=== PATIENT | male | born 1970 | race Two or more races ===

== ENCOUNTER 2023-08-04 17:50 | Inpatient (IN) | payer OTHER ==
[~2023-08-04] VITALS: Ht 172.7 cm; Wt 53.5 kg
[2023-08-04 23:24] LABS: Basophils # (auto) 0.1 10 ^3/uL (0-0.2); Basophils % (auto) 0.6 % (0.0-2.0); Eosinophils # (auto) 0.2 10 ^3/uL (0-0.8); Eosinophils % (auto) 1.9 % (0.0-7.0); Hematocrit 33.3 % (41.0-53.0); Hemoglobin 10.9 g/dL (13.5-17.5); Lymphocytes # (auto) 1.9 10 ^3/uL (0.4-5.4); Lymphocytes % (auto) 21.4 % (10.0-50.0); Mean Corpuscular Hemoglobin 29.2 pg (28.0-32.0); Mean Corpuscular Hgb Conc. 32.7 g/dL (32.0-36.0); Mean Corpuscular Volume 89.3 fL (80.0-100.0); Monocytes # (auto) 0.6 10 ^3/uL (0-1.3); Neutrophils % (auto) 69.1 % (37.0-80.0); Red Blood Cells 3.73 10^6/uL (4.5-5.90); Red Cell Distribution Width 14.6 % (11.8-14.3); White Blood Cell 8.7 10^3/uL (4.4-10.8)
[2023-08-04 23:32] LABS: Alanine Aminotransferase 13 U/L (7-40); Alkaline Phosphatase 109 U/L (46-116); Anion Gap 3 (5-15); Aspartate Aminotransferase 10 U/L (13-40); BUN/Creatinine Ratio 15.7 (10.0-20.0); Blood Urea Nitrogen 14 mg/dL (9-23); Calcium 9.2 mg/dL (8.5-10.1); Carbon Dioxide 31 mmol/L (20-30); Chloride 102 mmol/L (98-107); Glucose 327 mg/dL (74-106); Potassium 4.6 mmol/L (3.5-5.1); Sodium 136 mmol/L (136-145)
[2023-08-04 23:33] LABS: Bilirubin, Total 0.2 mg/dL (0.2-1.0); Total Protein 7.9 g/dL (5.7-8.2)
[2023-08-05 00:29] LABS: Lipase 74 U/L (12-53)
[2023-08-05 00:43] LABS: Urine Bacteria NONE SEEN /hpf (None Seen); Urine Blood Negative /uL (Negative); Urine Clarity Clear (Clear); Urine Color Yellow (Yellow); Urine Mucus FEW (None Seen); Urine Protein, UAD Negative (Negative); Urine Specific Gravity 1.024 (1.001-1.035); Urine Urobilinogen Normal (Negative); Urine WBC 2 /hpf (0 - 3); Urine pH 5.5 (5.0-8.0)
[2023-08-05] MEDS ORDERED: InsuLIN REG 1unit/0.01ml Soln (100units/ml) IV ONE (00:45)
[2023-08-05] MEDS ORDERED: ONDANSETRON HCL 4 MG/2 ML VIAL IV ONE (00:45)
[2023-08-05] MEDS ORDERED: HYDROmorphone HCL 2 MG/ML VL/or syr IV ONE (00:45)
[2023-08-05] MEDS ORDERED: SODIUM CHLORIDE 0.9% 1,000 ML IVB ONE (00:45)
[2023-08-05 01:24] LABS: Amphetamine Screen, Urine Neg (NEGATIVE); Barbiturate Scree,Urine Neg (NEGATIVE); Benzodiazephine Screen, Urine Neg (NEGATIVE); Cocaine Screen, Urine Neg (NEGATIVE); Opiate Scree,Urine Neg (NEGATIVE)
[2023-08-05 01:25] LABS: Cannabinoid Screen, Urine Neg (NEGATIVE); Phencyclidine Screen, Urine Neg (NEGATIVE)
[2023-08-05] MEDS ORDERED: SODIUM CHLORIDE 0.9% 1,000 ML IV ONE (03:45)
[2023-08-05] MEDS ORDERED: AZITHROMYCIN 500MG/ 250ML 250 ML IV ONE (03:45)
[2023-08-05] MEDS ORDERED: cefTRIAXone 1GM/50ML D5W 50 ML IV ONE (03:45)
[2023-08-05] MEDS ORDERED: DEXTROSE (50%) 50ML SYRG IV PRN (06:45)
[2023-08-05] MEDS ORDERED: ONDANSETRON HCL 4 MG/2 ML VIAL IV PRN (06:45)
[2023-08-05] MEDS: SODIUM CHLORIDE 0.9% 1,000 ML IV SCH ×2 (06:45→09:36)
[2023-08-05] MEDS ORDERED: MORPHINE SULFATE INJ 2 MG/ml SYRG IV PRN (06:45)
[2023-08-05] MEDS: cefTRIAXone 1GM/50ML D5W 50 ML IV SCH (09:36)
[2023-08-05] MEDS: AZITHROMYCIN 500MG/ 250ML 250 ML IV SCH (10:28)
[2023-08-05 11:30] VITALS: PULSE 80; RESP 12; O2SAT 98
[2023-08-05] MEDS: ACCU-CHEK COMFORT CURVE STRIP VI SCH ×2 (12:28→19:25)
[2023-08-05] MEDS: InsuLIN REG 1unit/0.01ml Soln (100units/ml) SC SCH ×2 (12:29→19:33)
[2023-08-05] MEDS ORDERED: GASTROGRAFIN 120 ML SOL ONE (14:14)
[2023-08-05 22:38] VITALS: BP 119/88; PULSE 82; RESP 16; TEMP 98.2; O2SAT 93
[2023-08-05] MEDS ORDERED: METF-372 PO (22:42)
[2023-08-05] MEDS ORDERED: GLIP-197 PO (22:42)
[2023-08-05] MEDS: INSULIN LANTUS (GLARGINE) 1 /0.01ml (100units/ml) SC SCH (23:08)
[2023-08-06] MEDS: ACCU-CHEK COMFORT CURVE STRIP VI SCH ×5 (00:45→23:30)
[2023-08-06] MEDS: InsuLIN REG 1unit/0.01ml Soln (100units/ml) SC SCH ×5 (00:48→23:30)
[2023-08-06 05:28] VITALS: BP 109/64; PULSE 60; RESP 16; TEMP 97.9; O2SAT 95
[2023-08-06 07:02] LABS: Eosinophils # (auto) 0.1 10 ^3/uL (0-0.8); Hematocrit 34.7 % (41.0-53.0); Lymphocytes # (auto) 1.6 10 ^3/uL (0.4-5.4); Monocytes # (auto) 0.5 10 ^3/uL (0-1.3); Monocytes % (auto) 7.2 % (0.0-12.0); White Blood Cell 6.6 10^3/uL (4.4-10.8)
[2023-08-06 07:04] LABS: Basophils # (auto) 0.1 10 ^3/uL (0-0.2); Basophils % (auto) 0.8 % (0.0-2.0); Eosinophils % (auto) 1.6 % (0.0-7.0); Hemoglobin 11.5 g/dL (13.5-17.5); Mean Corpuscular Hemoglobin 29.6 pg (28.0-32.0); Mean Corpuscular Hgb Conc. 33.3 g/dL (32.0-36.0); Mean Corpuscular Volume 88.8 fL (80.0-100.0); Neutrophils # (auto) 4.4 10 ^3/uL (1.6-8.6); Neutrophils % (auto) 66.4 % (37.0-80.0); Nucleated Red Blood Cells % 0.1 %
[2023-08-06 07:24] LABS: Alanine Aminotransferase 11 U/L (7-40); Albumin 4.2 g/dL (3.2-4.8); Alkaline Phosphatase 100 U/L (46-116); Anion Gap 6 (5-15); Aspartate Aminotransferase 12 U/L (13-40); BUN/Creatinine Ratio 11.7 (10.0-20.0); Bilirubin, Total 0.2 mg/dL (0.2-1.0); Blood Urea Nitrogen 7 mg/dL (9-23); Calcium 9.2 mg/dL (8.7-10.4); Carbon Dioxide 29 mmol/L (20-30); Chloride 102 mmol/L (98-107); Glucose 85 mg/dL (74-106); Potassium 3.7 mmol/L (3.5-5.1); Sodium 137 mmol/L (136-145); Total Protein 8.2 g/dL (5.7-8.2)
[2023-08-06] MEDS: cefTRIAXone 1GM/50ML D5W 50 ML IV SCH (08:40)
[2023-08-06 09:19] VITALS: BP 107/73; PULSE 96; RESP 20; TEMP 98.3; O2SAT 99
[2023-08-06] MEDS: SODIUM CHLORIDE 0.9% 1,000 ML IV SCH ×2 (09:54→22:45)
[2023-08-06] MEDS: AZITHROMYCIN 500MG/ 250ML 250 ML IV SCH (09:55)
[2023-08-06 12:38] VITALS: BP 130/85; PULSE 72; RESP 20; TEMP 97.5; O2SAT 100
[2023-08-06 17:02] VITALS: BP 119/83; PULSE 77; RESP 20; TEMP 98.9; O2SAT 100
[2023-08-06 22:00] VITALS: BP 100/72; PULSE 89; RESP 20; TEMP 98.1; O2SAT 91
[2023-08-06] MEDS: INSULIN LANTUS (GLARGINE) 1 /0.01ml (100units/ml) SC SCH (22:00)
[2023-08-07 05:00] VITALS: BP 120/80; PULSE 86; RESP 22; TEMP 97.7; O2SAT 100
[2023-08-07 05:31] LABS: Basophils # (auto) 0 10 ^3/uL (0-0.2); Eosinophils # (auto) 0.1 10 ^3/uL (0-0.8); Eosinophils % (auto) 2.1 % (0.0-7.0); Hemoglobin 11.4 g/dL (13.5-17.5); Monocytes # (auto) 0.3 10 ^3/uL (0-1.3); Neutrophils # (auto) 2.8 10 ^3/uL (1.6-8.6); Nucleated Red Blood Cells % 0.1 %
[2023-08-07 05:35] LABS: Hematocrit 33.7 % (41.0-53.0); Lymphocytes # (auto) 1.3 10 ^3/uL (0.4-5.4); Lymphocytes % (auto) 29.3 % (10.0-50.0); Mean Corpuscular Hemoglobin 29.5 pg (28.0-32.0); Mean Corpuscular Hgb Conc. 33.7 g/dL (32.0-36.0); Mean Corpuscular Volume 87.5 fL (80.0-100.0); Monocytes % (auto) 7.1 % (0.0-12.0); Neutrophils % (auto) 60.5 % (37.0-80.0); Red Blood Cells 3.86 10^6/uL (4.5-5.90); Red Cell Distribution Width 14.7 % (11.8-14.3); White Blood Cell 4.6 10^3/uL (4.4-10.8)
[2023-08-07 05:49] LABS: Chloride 102 mmol/L (98-107); Potassium 3.7 mmol/L (3.5-5.1); Sodium 135 mmol/L (136-145)
[2023-08-07 05:50] LABS: Anion Gap 8 (5-15); Calcium 9.1 mg/dL (8.5-10.1); Carbon Dioxide 25 mmol/L (20-30)
[2023-08-07 05:55] LABS: Glucose 103 mg/dL (74-106)
[2023-08-07] MEDS: InsuLIN REG 1unit/0.01ml Soln (100units/ml) SC SCH ×4 (06:00→22:55)
[2023-08-07 06:05] LABS: BUN/Creatinine Ratio 9.6 (10.0-20.0); Blood Urea Nitrogen < 5 mg/dL (9-23)
[2023-08-07] MEDS: ACCU-CHEK COMFORT CURVE STRIP VI SCH ×4 (06:13→22:55)
[2023-08-07 08:38] VITALS: BP 118/81; PULSE 80; RESP 20; TEMP 97.7; O2SAT 96
[2023-08-07] MEDS: cefTRIAXone 1GM/50ML D5W 50 ML IV SCH (08:51)
[2023-08-07] MEDS: AZITHROMYCIN 500MG/ 250ML 250 ML IV SCH (08:52)
[2023-08-07 12:29] VITALS: BP 108/66; PULSE 74; RESP 20; TEMP 98.2; O2SAT 93
[2023-08-07] MEDS: SODIUM CHLORIDE 0.9% 1,000 ML IV SCH (12:34)
[2023-08-07] MEDS ORDERED: VANCOMYCIN PER PHARMACY 0 MG IV SCH (14:30)
[2023-08-07] MEDS ORDERED: PIPERACILLIN-TAZOB 3.375GM 100 ML IV ONE (14:30)
[2023-08-07] MEDS ORDERED: VANCOMYCIN 1GM/250ML 250 ML IV ONE (15:30)
[2023-08-07 17:21] VITALS: BP 109/70; PULSE 96; RESP 16; TEMP 98; O2SAT 97
[2023-08-07 21:50] VITALS: BP 109/71; PULSE 96; RESP 18; TEMP 98.9; O2SAT 97
[2023-08-07] MEDS: PIPERACILLIN-TAZOB 3.375GM 100 ML IV SCH (22:10)
[2023-08-07] MEDS: INSULIN LANTUS (GLARGINE) 1 /0.01ml (100units/ml) SC SCH (22:55)
[2023-08-08] MEDS: SODIUM CHLORIDE 0.9% 1,000 ML IV SCH ×2 (01:25→14:45)
[2023-08-08] MEDS: VANCOMYCIN 750mg/250ml 250 ML IV SCH ×2 (01:38→12:21)
[2023-08-08 05:00] VITALS: BP 101/59; PULSE 98; RESP 18; TEMP 98.6; O2SAT 96
[2023-08-08] MEDS: ACCU-CHEK COMFORT CURVE STRIP VI SCH ×2 (06:42→11:36)
[2023-08-08] MEDS: InsuLIN REG 1unit/0.01ml Soln (100units/ml) SC SCH ×2 (06:44→11:36)
[2023-08-08 08:00] VITALS: PULSE 96; RESP 18; O2SAT 97
[2023-08-08 08:00] LABS: Eosinophils # (auto) 0.1 10 ^3/uL (0-0.8); Lymphocytes # (auto) 1.5 10 ^3/uL (0.4-5.4); Monocytes # (auto) 0.4 10 ^3/uL (0-1.3)
[2023-08-08 08:01] LABS: Basophils # (auto) 0 10 ^3/uL (0-0.2); Basophils % (auto) 0.7 % (0.0-2.0); Eosinophils % (auto) 1.8 % (0.0-7.0); Hemoglobin 11.6 g/dL (13.5-17.5); Lymphocytes % (auto) 26.8 % (10.0-50.0); Mean Corpuscular Hemoglobin 29.2 pg (28.0-32.0); Mean Corpuscular Hgb Conc. 33.1 g/dL (32.0-36.0); Monocytes % (auto) 6.5 % (0.0-12.0); Neutrophils # (auto) 3.6 10 ^3/uL (1.6-8.6); Neutrophils % (auto) 64.2 % (37.0-80.0); Red Blood Cells 3.97 10^6/uL (4.5-5.90); Red Cell Distribution Width 14.8 % (11.8-14.3); White Blood Cell 5.6 10^3/uL (4.4-10.8)
[2023-08-08 08:13] LABS: Chloride 103 mmol/L (98-107); Sodium 135 mmol/L (136-145)
[2023-08-08 08:14] LABS: Anion Gap 7 (5-15); Carbon Dioxide 25 mmol/L (20-30)
[2023-08-08 08:15] LABS: Calcium 8.9 mg/dL (8.5-10.1)
[2023-08-08 08:19] LABS: BUN/Creatinine Ratio 14.5 (10.0-20.0); Blood Urea Nitrogen 10 mg/dL (9-23); Glucose 189 mg/dL (74-106)
[2023-08-08 09:00] VITALS: BP 102/61; PULSE 96; RESP 18; TEMP 98.1; O2SAT 97
[2023-08-08] MEDS: PIPERACILLIN-TAZOB 3.375GM 100 ML IV SCH (09:37)
[2023-08-08] MEDS ORDERED: DOXY-286 PO (12:02)
[2023-08-08 13:10] VITALS: BP 102/65; PULSE 95; RESP 17; TEMP 98.6; O2SAT 98
== END 2023-08-08 18:22 | disposition home or self-care (01) | DRG 137 ==
LOC: ER 17:50 → EDBD 17:50 → OVERFLOW 08-05 06:38 → WEST WING 08-05 22:15
PROVIDERS: ADMIT Internal Medicine; ATTEND Internal Medicine
DX: J15.69 Pneumonia due to other Gram-negative bacteria (principal); N17.0 Acute kidney failure with tubular necrosis; K40.00 Bilateral inguinal hernia, with obstruction, without gangrene, not specified as recurrent; I10 Essential (primary) hypertension; J15.9 Unspecified bacterial pneumonia; E11.65 Type 2 diabetes mellitus with hyperglycemia
CPT/HCPCS: 36415; 71045; 74177; 74250; 80048; 80053; 80307; 80320; 81001; 82962; 83036; 83605; 83690; 84484; 85025; 87040; 87077; 87186; G0378; J0696; J1815; J2543

== ENCOUNTER 2023-08-19 10:37 | Emergency (ER) | payer MEDICAID, OTHER ==
[~2023-08-19] VITALS: Ht 172.7 cm; Wt 50.0 kg
[~2023-08-19 10:37] MED LIST: DOXY-286 PO; GLIP-197 PO; METF-372 PO
[2023-08-19] MEDS ORDERED: MORPHINE SULFATE 4 MG/ML SYR/VIAL IV ONE (11:15)
[2023-08-19] MEDS ORDERED: ONDANSETRON HCL 4 MG/2 ML VIAL IV ONE (11:15)
[2023-08-19] MEDS ORDERED: SODIUM CHLORIDE 0.9% 500 ML IVB ONE (11:15)
[2023-08-19 11:31] LABS: Basophils # (auto) 0.1 10 ^3/uL (0-0.2); Eosinophils # (auto) 0.1 10 ^3/uL (0-0.8); Lymphocytes # (auto) 1.7 10 ^3/uL (0.4-5.4)
[2023-08-19 11:33] LABS: Basophils % (auto) 0.9 % (0.0-2.0); Eosinophils % (auto) 1.3 % (0.0-7.0); Hematocrit 38.4 % (41.0-53.0); Hemoglobin 13.1 g/dL (13.5-17.5); Mean Corpuscular Hemoglobin 29.8 pg (28.0-32.0); Mean Corpuscular Volume 87.5 fL (80.0-100.0); Monocytes # (auto) 0.8 10 ^3/uL (0-1.3); Monocytes % (auto) 8.6 % (0.0-12.0); Neutrophils # (auto) 7.1 10 ^3/uL (1.6-8.6); Neutrophils % (auto) 72.2 % (37.0-80.0); Red Blood Cells 4.39 10^6/uL (4.5-5.90); White Blood Cell 9.8 10^3/uL (4.4-10.8)
[2023-08-19 11:40] LABS: Urine Bacteria NONE SEEN /hpf (None Seen); Urine Blood Negative /uL (Negative); Urine Clarity Clear (Clear); Urine Color Colorless (Yellow); Urine Protein, UAD TRACE (Negative); Urine Specific Gravity 1.037 (1.001-1.035); Urine Urobilinogen Normal (Negative); Urine WBC <1 /hpf (0 - 3); Urine pH 5.5 (5.0-8.0)
[2023-08-19 11:50] LABS: Alanine Aminotransferase 27 U/L (7-40); Albumin 4.3 g/dL (3.2-4.8); Alkaline Phosphatase 155 U/L (46-116); Anion Gap 5 (5-15); Aspartate Aminotransferase 33 U/L (13-40); BUN/Creatinine Ratio 9.7 (10.0-20.0); Bilirubin, Total 0.6 mg/dL (0.2-1.0); Blood Urea Nitrogen 7 mg/dL (9-23); Carbon Dioxide 24 mmol/L (20-30); Chloride 99 mmol/L (98-107); Glucose 389 mg/dL (74-106); Lipase 41 U/L (12-53); Sodium 128 mmol/L (136-145); Total Protein 8.5 g/dL (5.7-8.2)
[2023-08-19 12:05] LABS: INR 0.94 (0.9-1.15); Partial Thromboplastin Time 28.6 SEC (24.5-34.5); Prothrombin Time 9.9 sec (9.3-11.8)
[2023-08-19] MEDS ORDERED: IOHEXOL 300 MG/ML 100ML BOTTLE IJ ONE (12:08)
[2023-08-19 18:29] VITALS: BP 104/65; PULSE 112; RESP 20; TEMP 98.3; O2SAT 97
== END 2023-08-19 18:48 | disposition home or self-care (01) ==
LOC: ER 10:37
DX: K40.90 Unilateral inguinal hernia, without obstruction or gangrene, not specified as recurrent (principal); E11.9 Type 2 diabetes mellitus without complications; E78.5 Hyperlipidemia, unspecified; I10 Essential (primary) hypertension
CPT/HCPCS: 36415; 74177; 80053; 81001; 83690; 83735; 85025; 85610; 85730; 96361; 96374; 96375; 99285; J2270; J2405; J7040; Q9967

== ENCOUNTER 2023-08-25 14:52 | Emergency (ER) | payer MEDICAID ==
[~2023-08-25] VITALS: Ht 177.8 cm; Wt 55.3 kg
[2023-08-25 16:01] LABS: Basophils # (auto) 0.1 10 ^3/uL (0-0.2); Eosinophils # (auto) 0.1 10 ^3/uL (0-0.8); Hemoglobin 13.3 g/dL (13.5-17.5); Monocytes # (auto) 0.6 10 ^3/uL (0-1.3)
[2023-08-25 16:03] LABS: Basophils % (auto) 1.1 % (0.0-2.0); Eosinophils % (auto) 1.5 % (0.0-7.0); Hematocrit 39.7 % (41.0-53.0); Lymphocytes # (auto) 2.1 10 ^3/uL (0.4-5.4); Lymphocytes % (auto) 29.7 % (10.0-50.0); Mean Corpuscular Hemoglobin 29.3 pg (28.0-32.0); Mean Corpuscular Hgb Conc. 33.4 g/dL (32.0-36.0); Mean Corpuscular Volume 87.7 fL (80.0-100.0); Neutrophils # (auto) 4.1 10 ^3/uL (1.6-8.6); Neutrophils % (auto) 58.7 % (37.0-80.0); Red Blood Cells 4.52 10^6/uL (4.5-5.90); White Blood Cell 7.1 10^3/uL (4.4-10.8)
[2023-08-25 16:08] LABS: Urine Bacteria NONE SEEN /hpf (None Seen); Urine Blood Negative /uL (Negative); Urine Clarity Clear (Clear); Urine Color Colorless (Yellow); Urine Protein, UAD Negative (Negative); Urine Specific Gravity 1.033 (1.001-1.035); Urine Urobilinogen Normal (Negative); Urine WBC <1 /hpf (0 - 3)
[2023-08-25 16:22] LABS: Alanine Aminotransferase 19 U/L (7-40); Albumin 4.5 g/dL (3.2-4.8); Alkaline Phosphatase 219 U/L (46-116); Anion Gap 7 (5-15); Aspartate Aminotransferase 9 U/L (13-40); BUN/Creatinine Ratio 23.2 (10.0-20.0); Bilirubin, Total 0.3 mg/dL (0.2-1.0); Blood Urea Nitrogen 19 mg/dL (9-23); Calcium 9.7 mg/dL (8.5-10.1); Carbon Dioxide 27 mmol/L (20-30); Chloride 97 mmol/L (98-107); Potassium 4.5 mmol/L (3.5-5.1); Sodium 131 mmol/L (136-145); Total Protein 8.4 g/dL (5.7-8.2)
[2023-08-25 16:31] LABS: Glucose 483 mg/dL (74-106)
[2023-08-25] MEDS ORDERED: SODIUM CHLORIDE 0.9% 1,000 ML IV ONE (16:45)
[2023-08-25] MEDS ORDERED: InsuLIN REG 1unit/0.01ml Soln (100units/ml) IV ONE (16:45)
[2023-08-25] MEDS ORDERED: METF-489 PO (19:58)
[2023-08-25] MEDS ORDERED: GLIP-197 PO (19:58)
[2023-08-25 20:10] VITALS: BP 118/81; PULSE 112; RESP 22; O2SAT 100
== END 2023-08-25 21:23 | disposition home or self-care (01) ==
LOC: ER 14:52
DX: K40.20 Bilateral inguinal hernia, without obstruction or gangrene, not specified as recurrent (principal); E11.65 Type 2 diabetes mellitus with hyperglycemia; E78.5 Hyperlipidemia, unspecified; I10 Essential (primary) hypertension
CPT/HCPCS: 36415; 76705; 80053; 81001; 82962; 85025; 96361; 96374; 99285; J1815; J7030

== ENCOUNTER 2023-08-29 13:07 | Inpatient (IN) | payer MEDICAID ==
[~2023-08-29] VITALS: Ht 172.7 cm; Wt 56.1 kg
[~2023-08-29 13:07] MED LIST changes: +METF-489 PO
[2023-08-29] MEDS ORDERED: SODIUM CHLORIDE 0.9% 1,000 ML IVB ONE (18:30)
[2023-08-29] MEDS ORDERED: MORPHINE SULFATE 4 MG/ML SYR/VIAL IV ONE (18:30)
[2023-08-29] MEDS ORDERED: ONDANSETRON HCL 4 MG/2 ML VIAL IV ONE (18:30)
[2023-08-29 18:38] VITALS: PULSE 92; RESP 20; O2SAT 96
[2023-08-29 18:53] LABS: Basophils # (auto) 0.1 10 ^3/uL (0-0.2); Basophils % (auto) 0.8 % (0.0-2.0); Eosinophils # (auto) 0.1 10 ^3/uL (0-0.8); Eosinophils % (auto) 1.7 % (0.0-7.0); Hematocrit 37.8 % (41.0-53.0); Hemoglobin 12.5 g/dL (13.5-17.5); Lymphocytes # (auto) 1.8 10 ^3/uL (0.4-5.4); Lymphocytes % (auto) 25.6 % (10.0-50.0); Mean Corpuscular Hemoglobin 28.8 pg (28.0-32.0); Mean Corpuscular Hgb Conc. 32.9 g/dL (32.0-36.0); Mean Corpuscular Volume 87.4 fL (80.0-100.0); Monocytes # (auto) 0.5 10 ^3/uL (0-1.3); Monocytes % (auto) 7.2 % (0.0-12.0); Neutrophils # (auto) 4.6 10 ^3/uL (1.6-8.6); Neutrophils % (auto) 64.7 % (37.0-80.0); Nucleated Red Blood Cells % 0.1 %; Red Blood Cells 4.33 10^6/uL (4.5-5.90); Red Cell Distribution Width 14.6 % (11.8-14.3)
[2023-08-29] MEDS ORDERED: ONDANSETRON HCL 4 MG/2 ML VIAL ONE (19:11)
[2023-08-29 19:15] LABS: Alanine Aminotransferase 17 U/L (7-40); Alkaline Phosphatase 138 U/L (46-116); Anion Gap 2 (5-15); Aspartate Aminotransferase 10 U/L (13-40); BUN/Creatinine Ratio 31.8 (10.0-20.0); Blood Urea Nitrogen 21 mg/dL (9-23); Carbon Dioxide 29 mmol/L (20-30); Chloride 101 mmol/L (98-107); Lipase 76 U/L (12-53); Potassium 4.3 mmol/L (3.5-5.1); Sodium 132 mmol/L (136-145)
[2023-08-29 19:16] LABS: Bilirubin, Total 0.3 mg/dL (0.2-1.0); Total Protein 7.1 g/dL (5.7-8.2)
[2023-08-29 19:22] LABS: Glucose 277 mg/dL (74-106)
[2023-08-29 19:30] VITALS: PULSE 96; RESP 19; O2SAT 97
[2023-08-29 20:07] LABS: Urine Bacteria NONE SEEN /hpf (None Seen); Urine Blood Negative /uL (Negative); Urine Clarity Clear (Clear); Urine Color Colorless (Yellow); Urine Protein, UAD Negative (Negative); Urine Specific Gravity 1.023 (1.001-1.035); Urine Urobilinogen Normal (Negative); Urine WBC 1 /hpf (0 - 3)
[2023-08-29] MEDS ORDERED: DOCUSATE SOD 100 MG CAP PO PRN (22:00)
[2023-08-29] MEDS ORDERED: metroNIDAZOLE 500MG/100ML 100 ML IV SCH (22:00)
[2023-08-29] MEDS ORDERED: ONDANSETRON HCL 4 MG/2 ML VIAL IV PRN (22:00)
[2023-08-29] MEDS ORDERED: cefTRIAXone 1GM/50ML D5W 50 ML IV SCH (22:00)
[2023-08-29] MEDS ORDERED: HYDROmorphone HCL 2 MG/ML VL/or syr IV PRN (22:00)
[2023-08-29] MEDS ORDERED: ACETAMINOPHEN 325 MG TAB PO PRN (22:00)
[2023-08-29] MEDS: SODIUM CHLOR 0.9% PF (SALINE LOCK) 10ML VIAL/SYR IV SCH (22:00)
[2023-08-29] MEDS ORDERED: HYDROcodone-ACET 5/325MG TAB PO PRN (22:00)
[2023-08-29] MEDS ORDERED: LACTATED RINGER'S 1,000 ML IV ONE (22:15)
[2023-08-29] MEDS ORDERED: DEXTROSE (50%) 50ML SYRG IV PRN (22:15)
[2023-08-30] MEDS ORDERED: cefTRIAXone 1GM/50ML D5W 50 ML IV ONE (00:29)
[2023-08-30] MEDS ORDERED: metroNIDAZOLE 500MG/100ML 100 ML IV ONE (00:29)
[2023-08-30] MEDS: cefTRIAXone 1GM/50ML D5W 50 ML IV SCH (00:30)
[2023-08-30] MEDS: metroNIDAZOLE 500MG/100ML 100 ML IV SCH ×3 (00:30→16:45)
[2023-08-30] MEDS: SODIUM CHLOR 0.9% PF (SALINE LOCK) 10ML VIAL/SYR IV SCH ×3 (06:19→22:10)
[2023-08-30] MEDS: ACCU-CHEK COMFORT CURVE STRIP VI SCH ×4 (06:52→22:10)
[2023-08-30] MEDS: InsuLIN REG 1unit/0.01ml Soln (100units/ml) SC SCH ×4 (06:52→21:59)
[2023-08-30 08:00] VITALS: PULSE 90; RESP 15; O2SAT 100
[2023-08-30] MEDS ORDERED: PIPERACILLIN-TAZOB 3.375GM 100 ML IV ONE (08:30)
[2023-08-30 09:57] LABS: INR 0.99 (0.9-1.15); Partial Thromboplastin Time 28.7 SEC (24.5-34.5); Prothrombin Time 10.4 sec (9.3-11.8)
[2023-08-30] MEDS ORDERED: cefTRIAXone 1GM/50ML D5W 50 ML IV SCH (10:00)
[2023-08-30] MEDS ORDERED: FAMOTIDINE 20 MG TAB PO SCH (10:00)
[2023-08-30] MEDS ORDERED: PANTOPRAZOLE 40 MG/10 ML VIAL INJ IV ONE (15:30)
[2023-08-30 17:16] LABS: Basophils # (auto) 0.1 10 ^3/uL (0-0.2); Eosinophils # (auto) 0.1 10 ^3/uL (0-0.8); Monocytes # (auto) 0.4 10 ^3/uL (0-1.3); Neutrophils # (auto) 4.4 10 ^3/uL (1.6-8.6); White Blood Cell 6.5 10^3/uL (4.4-10.8)
[2023-08-30 17:18] LABS: Basophils % (auto) 0.8 % (0.0-2.0); Eosinophils % (auto) 1.1 % (0.0-7.0); Hematocrit 36.9 % (41.0-53.0); Hemoglobin 12.3 g/dL (13.5-17.5); Lymphocytes # (auto) 1.6 10 ^3/uL (0.4-5.4); Lymphocytes % (auto) 24.3 % (10.0-50.0); Mean Corpuscular Hgb Conc. 33.4 g/dL (32.0-36.0); Mean Corpuscular Volume 87.1 fL (80.0-100.0); Monocytes % (auto) 5.8 % (0.0-12.0); Red Blood Cells 4.24 10^6/uL (4.5-5.90); Red Cell Distribution Width 14.8 % (11.8-14.3)
[2023-08-30 17:37] LABS: Alanine Aminotransferase 20 U/L (7-40); Albumin 4.2 g/dL (3.2-4.8); Alkaline Phosphatase 123 U/L (46-116); Anion Gap 5 (5-15); Aspartate Aminotransferase 15 U/L (13-40); BUN/Creatinine Ratio 11.1 (10.0-20.0); Bilirubin, Total 0.4 mg/dL (0.2-1.0); CRP High Sensitivity 0.17 mg/dL (<1.0); Calcium 9.5 mg/dL (8.5-10.1); Carbon Dioxide 28 mmol/L (20-30); Chloride 102 mmol/L (98-107); Cholesterol 195 mg/dL (< 200); HDL Cholesterol 30 mg/dL (40-59); LDL Cholesterol 131 mg/dL (< 100); Potassium 3.7 mmol/L (3.5-5.1); Sodium 135 mmol/L (136-145); Total Protein 7.8 g/dL (5.7-8.2); Triglycerides 139 mg/dL (< 150)
[2023-08-30 17:46] LABS: Blood Urea Nitrogen 7 mg/dL (9-23); Glucose 160 mg/dL (74-106)
[2023-08-30 17:55] LABS: Lipase 42 U/L (12-53); Magnesium 2.1 mg/dL (1.6-2.6)
[2023-08-30 22:53] VITALS: PULSE 82; RESP 20; O2SAT 98
[2023-08-31] MEDS: cefTRIAXone 1GM/50ML D5W 50 ML IV SCH (00:35)
[2023-08-31] MEDS: metroNIDAZOLE 500MG/100ML 100 ML IV SCH ×3 (00:35→20:54)
[2023-08-31 05:26] LABS: Chloride 101 mmol/L (98-107); Potassium 3.5 mmol/L (3.5-5.1); Sodium 134 mmol/L (136-145)
[2023-08-31 05:27] LABS: Anion Gap 7 (5-15); Carbon Dioxide 26 mmol/L (20-30)
[2023-08-31 05:32] LABS: Basophils # (auto) 0.1 10 ^3/uL (0-0.2); Basophils % (auto) 0.6 % (0.0-2.0); Blood Urea Nitrogen 7 mg/dL (9-23); Eosinophils # (auto) 0.1 10 ^3/uL (0-0.8); Eosinophils % (auto) 0.6 % (0.0-7.0); Glucose 171 mg/dL (74-106); Hematocrit 37.2 % (41.0-53.0); Hemoglobin 12.7 g/dL (13.5-17.5); Lymphocytes # (auto) 1.5 10 ^3/uL (0.4-5.4); Lymphocytes % (auto) 16.2 % (10.0-50.0); Mean Corpuscular Hemoglobin 29.4 pg (28.0-32.0); Mean Corpuscular Hgb Conc. 34.1 g/dL (32.0-36.0); Mean Corpuscular Volume 86.4 fL (80.0-100.0); Monocytes # (auto) 0.4 10 ^3/uL (0-1.3); Monocytes % (auto) 4.7 % (0.0-12.0); Neutrophils # (auto) 7.3 10 ^3/uL (1.6-8.6); Neutrophils % (auto) 77.9 % (37.0-80.0); Nucleated Red Blood Cells % 0.1 %; Red Blood Cells 4.31 10^6/uL (4.5-5.90); Red Cell Distribution Width 14.2 % (11.8-14.3); White Blood Cell 9.4 10^3/uL (4.4-10.8)
[2023-08-31] MEDS: SODIUM CHLOR 0.9% PF (SALINE LOCK) 10ML VIAL/SYR IV SCH ×3 (06:21→22:03)
[2023-08-31] MEDS: ACCU-CHEK COMFORT CURVE STRIP VI SCH ×4 (06:47→22:03)
[2023-08-31] MEDS: InsuLIN REG 1unit/0.01ml Soln (100units/ml) SC SCH ×4 (06:49→22:19)
[2023-08-31 09:16] LABS: Hepatitis B Surface Antigen Negative (Negative)
[2023-08-31 09:37] LABS: Hepatitis A Ab IgM Negative
[2023-08-31 09:38] LABS: Hepatitis B Core IgM Negative; Hepatitis C Antibody Negative (Negative)
[2023-08-31 09:44] VITALS: BP 128/91; PULSE 98; RESP 17; TEMP 97.9; O2SAT 98
[2023-08-31] MEDS ORDERED: PANTOPRAZOLE 40 MG/10 ML VIAL INJ IV SCH (10:00)
[2023-08-31] MEDS: PANTOPRAZOLE 40 MG/10 ML VIAL INJ IV SCH ×2 (11:21→22:03)
[2023-08-31] MEDS ORDERED: POLYETHYLENE GLYCOL 17 GM PWDR PO ONE (12:00)
[2023-08-31] MEDS: METOCLOPRAMIDE HCL 10 MG TAB PO SCH ×2 (14:00→22:03)
[2023-08-31 17:00] VITALS: BP 106/70; PULSE 97; RESP 20; TEMP 98.3; O2SAT 90
[2023-08-31] MEDS: FERROUS SULFATE 325mg EC TAB PO SCH (17:19)
[2023-08-31] MEDS ORDERED: metroNIDAZOLE 500MG/100ML 100 ML IV SCH (19:00)
[2023-08-31 20:00] VITALS: O2SAT 100
[2023-08-31 22:00] VITALS: BP 110/83; PULSE 98; RESP 18; TEMP 97.8; O2SAT 100
[2023-08-31] MEDS ORDERED: INSULIN LANTUS (GLARGINE) 1 /0.01ml (100units/ml) SC SCH (22:00)
[2023-08-31] MEDS ORDERED: ATORVASTATIN 20 MG TAB PO SCH (22:00)
[2023-09-01] MEDS: cefTRIAXone 1GM/50ML D5W 50 ML IV SCH (00:20)
[2023-09-01] MEDS: SODIUM CHLOR 0.9% PF (SALINE LOCK) 10ML VIAL/SYR IV SCH (04:51)
[2023-09-01] MEDS: metroNIDAZOLE 500MG/100ML 100 ML IV SCH ×2 (04:51→13:14)
[2023-09-01 05:00] VITALS: BP 121/84; PULSE 85; RESP 18; TEMP 97.7; O2SAT 99
[2023-09-01] MEDS: METOCLOPRAMIDE HCL 10 MG TAB PO SCH (06:22)
[2023-09-01] MEDS: ACCU-CHEK COMFORT CURVE STRIP VI SCH ×2 (06:23→13:14)
[2023-09-01] MEDS: InsuLIN REG 1unit/0.01ml Soln (100units/ml) SC SCH ×2 (06:34→13:16)
[2023-09-01 07:29] LABS: Basophils # (auto) 0 10 ^3/uL (0-0.2); Eosinophils # (auto) 0.1 10 ^3/uL (0-0.8); Monocytes # (auto) 0.4 10 ^3/uL (0-1.3); Neutrophils # (auto) 2.5 10 ^3/uL (1.6-8.6)
[2023-09-01 07:32] LABS: Basophils % (auto) 0.8 % (0.0-2.0); Eosinophils % (auto) 1.6 % (0.0-7.0); Hematocrit 37.3 % (41.0-53.0); Hemoglobin 12.5 g/dL (13.5-17.5); Lymphocytes # (auto) 1.5 10 ^3/uL (0.4-5.4); Lymphocytes % (auto) 33.8 % (10.0-50.0); Mean Corpuscular Hgb Conc. 33.5 g/dL (32.0-36.0); Mean Corpuscular Volume 86.7 fL (80.0-100.0); Monocytes % (auto) 8.6 % (0.0-12.0); Neutrophils % (auto) 55.2 % (37.0-80.0); Nucleated Red Blood Cells % 0.2 %; Red Cell Distribution Width 14.5 % (11.8-14.3); White Blood Cell 4.5 10^3/uL (4.4-10.8)
[2023-09-01 07:43] LABS: Anion Gap 4 (5-15); Calcium 9.3 mg/dL (8.5-10.1); Carbon Dioxide 27 mmol/L (20-30); Chloride 103 mmol/L (98-107); Potassium 3.7 mmol/L (3.5-5.1); Sodium 134 mmol/L (136-145)
[2023-09-01 07:49] LABS: Glucose 170 mg/dL (74-106)
[2023-09-01 07:54] LABS: BUN/Creatinine Ratio 7.8 (10.0-20.0); Blood Urea Nitrogen < 5 mg/dL (9-23)
[2023-09-01 08:06] LABS: RPR Non Reactive (Non Reactive)
[2023-09-01 08:44] VITALS: BP 119/85; PULSE 90; RESP 16; TEMP 97.5; O2SAT 100
[2023-09-01] MEDS: PANTOPRAZOLE 40 MG/10 ML VIAL INJ IV SCH (10:40)
[2023-09-01] MEDS: FERROUS SULFATE 325mg EC TAB PO SCH (10:40)
[2023-09-01] MEDS ORDERED: ASPI1TAB20 PO (12:00)
[2023-09-01] MEDS ORDERED: METF-372 PO (12:00)
[2023-09-01] MEDS ORDERED: ERGO1CAP23 PO (12:00)
[2023-09-01] MEDS ORDERED: EMPA1TAB PO (12:00)
[2023-09-01] MEDS ORDERED: GLIP-197 PO (12:00)
[2023-09-01] MEDS ORDERED: IOHEXOL 300 MG/ML 100ML BOTTLE IJ ONE (12:00)
[2023-09-01] MEDS ORDERED: BLOO1KIT60 XX (12:00)
[2023-09-01] MEDS ORDERED: ATO40T PO (12:00)
[2023-09-01 13:00] VITALS: BP 120/85; PULSE 86; RESP 17; TEMP 98.3; O2SAT 100
[2023-09-01] MEDS ORDERED: METR-344 PO (14:27)
== END 2023-09-01 16:00 | disposition home or self-care (01) | DRG 241 ==
LOC: EDBD 13:07 → EDUNIT# 13:07 → ER 13:07 → OVERFLOW 22:03 → CENTRAL 08-31 09:29
PROVIDERS: ADMIT Internal Medicine; ATTEND Internal Medicine
DX: K29.70 Gastritis, unspecified, without bleeding (principal); I11.0 Hypertensive heart disease with heart failure; I50.9 Heart failure, unspecified; E11.65 Type 2 diabetes mellitus with hyperglycemia; K59.00 Constipation, unspecified; K27.9 Peptic ulcer, site unspecified, unspecified as acute or chronic, without hemorrhage or perforation; K31.84 Gastroparesis; E55.9 Vitamin D deficiency, unspecified; K44.9 Diaphragmatic hernia without obstruction or gangrene; E78.5 Hyperlipidemia, unspecified; K52.9 Noninfective gastroenteritis and colitis, unspecified; Z82.49 Family history of ischemic heart disease and other diseases of the circulatory system; Z83.3 Family history of diabetes mellitus; Z91.199 Patient's noncompliance with other medical treatment and regimen due to unspecified reason; Z59.00 Homelessness unspecified; R91.8 Other nonspecific abnormal finding of lung field
CPT/HCPCS: 36415; 71045; 71275; 74176; 80048; 80053; 80061; 80074; 81001; 82010; 82140; 82306; 82607; 82746; 82962; 83540; 83550; 83605; 83615; 83690; 83735; 83880; 84443; 84484; 85025; 85045; 85610; 85730; 86141; 86592; 86703; 87040; 87081; 97110; 97116; 97163; C9113; G0378; J1815; J2405; J2543; J3490